=== PATIENT | female | born 1990 | race Caucasian/White ===

== ENCOUNTER 2020-05-03 22:16 | Emergency (ER) | payer OTHER ==
[~2020-05-03] VITALS: Ht 170.2 cm; Wt 68.0 kg
[2020-05-03] MEDS ORDERED: CYCL10 PO (23:00)
[2020-05-03] MEDS ORDERED: IBU600 MG PO (23:00)
[2020-05-03] MEDS ORDERED: BUPRENORPHINE (23:49)
== END 2020-05-04 00:08 | disposition home or self-care (01) ==
LOC: ER 22:16
DX: S16.1XXA Strain of muscle, fascia and tendon at neck level, initial encounter (principal); S09.90XA Unspecified injury of head, initial encounter; Z79.899 Other long term (current) drug therapy; V49.40XA Driver injured in collision with unspecified motor vehicles in traffic accident, initial encounter; Y92.410 Unspecified street and highway as the place of occurrence of the external cause
CPT/HCPCS: 70450; 72125; 99285-25; A9270

== ENCOUNTER 2020-05-07 15:19 | Emergency (ER) | payer OTHER ==
[~2020-05-07] VITALS: Ht 170.2 cm; Wt 68.0 kg
[~2020-05-07 15:19] MED LIST: BUPRENORPHINE; CYCL10 PO; IBU600 MG PO
== END 2020-05-07 17:24 | disposition home or self-care (01) ==
LOC: ER 15:19
DX: S39.012A Strain of muscle, fascia and tendon of lower back, initial encounter (principal); S16.1XXA Strain of muscle, fascia and tendon at neck level, initial encounter; F17.210 Nicotine dependence, cigarettes, uncomplicated; F17.290 Nicotine dependence, other tobacco product, uncomplicated; Z79.891 Long term (current) use of opiate analgesic; V89.2XXA Person injured in unspecified motor-vehicle accident, traffic, initial encounter; Y92.410 Unspecified street and highway as the place of occurrence of the external cause
CPT/HCPCS: 72070; 72100; 99283-25

== ENCOUNTER 2020-12-09 12:55 | Emergency (ER) | payer OTHER ==
[~2020-12-09] VITALS: Ht 170.2 cm; Wt 68.0 kg
[2020-12-09] MEDS ORDERED: AMOCLA875 PO (13:47)
== END 2020-12-09 14:02 | disposition home or self-care (01) ==
LOC: ER 12:55
DX: K04.7 Periapical abscess without sinus (principal); K03.81 Cracked tooth; F17.290 Nicotine dependence, other tobacco product, uncomplicated; Z79.899 Other long term (current) drug therapy
CPT/HCPCS: 99282